=== PATIENT | male | born 1970 | race American Indian/Alaskan Native ===

== ENCOUNTER 2024-01-27 08:17 | Day surgery (SDC) | payer MEDICAID ==
[2024-01-27] MEDS: Lactated Ringers 1,000 ML IV SCH (08:48)
[2024-01-27] MEDS: Sodium Chloride 0.9% 10 ML Syringe FLUSH PRN (08:49)
[2024-01-27] MEDS: ceFAZolin 2 GM Vial IVPUSH ONE (09:27)
[2024-01-27] MEDS ORDERED: ceFAZolin 1 GM Vial ONE (09:31)
[2024-01-27] MEDS ORDERED: Dexamethasone 4 MG/ML SDV ONE (09:31)
[2024-01-27] MEDS ORDERED: Bupivacaine 0.5% 30 ML SDV ONE (09:31)
[2024-01-27] MEDS ORDERED: Lidocaine 1% 30 ML SDV ONE (09:31)
[2024-01-27] MEDS ORDERED: Ketorolac 30 MG/ML SDV ONE (09:31)
[2024-01-27] MEDS ORDERED: Succinylcholine 200 MG/10 ML MDV ONE (09:32)
[2024-01-27] MEDS ORDERED: Lidocaine 1% 4 ML ONE (09:37)
[2024-01-27] MEDS: Bupivacaine 0.5% 30 ML SDV INJECT ONE (10:03)
[2024-01-27] MEDS: Lidocaine 1% 30 ML SDV INJECT ONE (10:03)
== END 2024-01-27 12:34 | disposition home or self-care (01) ==
LOC: DL.SDS 08:17
PROVIDERS: ATTEND Podiatrist Foot & Ankle Surgery
DX: M20.11 Hallux valgus (acquired), right foot (principal)
CPT/HCPCS: 01480; 28296; C1713; J0330; J0665; J0690; J7120; J3490